=== PATIENT | male | born 1950 | race Two or more races ===

== ENCOUNTER 2022-07-05 12:26 | Inpatient (IN) | payer OTHER ==
[~2022-07-05] VITALS: Ht 172.7 cm; Wt 63.5 kg
--- NOTE | 2022-07-05 12:30 | NUR ---
PAtient AOx4 able to express his own concerns. PAtient was able to provide history and the situation that happened at the facility were he fell. Discussed plan of care, patient verbalized agreement. All safety precautions taken.
[2022-07-05] MEDS ORDERED: ONDANSETRON HCL/PF 4 MG/2 ML VIAL ONE (12:49)
[2022-07-05] MEDS ORDERED: MORPHINE SULFATE INJ 4 MG/ML DISP.SYRIN ONE (12:50)
--- NOTE | 2022-07-05 12:51 | NUR ---
MOVE SHEET SUBMITTED.
--- NOTE | 2022-07-05 12:59 | NUR ---
COVID SWAB COLLECTED AND SENT TO LAB
[2022-07-05] MEDS ORDERED: ONDANSETRON HCL/PF 4 MG/2 ML VIAL IVP ONE (13:00)
[2022-07-05] MEDS ORDERED: IV NS 0.9% 1,000 ML BAG IV ONE (13:00)
[2022-07-05] MEDS ORDERED: MORPHINE SULFATE INJ 2 MG/ML DISP.SYRIN IV ONE (13:00)
[2022-07-05 13:12] LABS: BASOPHILS % (AUTO) 0.2 % (0.0-2.0); EOSINOPHILS % (AUTO) 0.8 % (0.0-6.0); HEMATOCRIT 34 % (39-51); HEMOGLOBIN 11.2 g/dL (13.5-17.5); LYMPHOCYTES # (AUTO) 0.4 K/uL (0.8-4.8); LYMPHOCYTES % (AUTO) 1.7 % (20.0-44.0); MEAN CORPUSCULAR HGB CONC 33 g/dl (31.0-36.0); MEAN CORPUSCULAR VOLUME 87 fL (80-96); MONOCYTES # (AUTO) 1.6 K/uL (0.1-1.30); MONOCYTES % (AUTO) 6.6 % (2.0-12.0); NEUTROPHILS # (AUTO) 21.3 K/uL (1.8-8.9); NEUTROPHILS % (AUTO) 90.7 % (43.0-81.0); PLATELET COUNT (AUTO) 571 K/uL (150-450); RED BLOOD CELL COUNT(AUTO) 3.91 MIL/uL (4.5-6.0); WHITE BLOOD COUNT (AUTO) 23.5 K/uL (4.3-11.0)
[2022-07-05 13:27] LABS: ALBUMIN 1.8 g/dL (3.4-5.0); BILIRUBIN,DIRECT 4.1 mg/dL (0.0-0.2); BILIRUBIN,TOTAL 4.6 mg/dL (0.2-1.0); CALCIUM, SERUM 9.2 mg/dL (8.5-10.1); POTASSIUM 3.8 mmol/L (3.5-5.1); TOTAL PROTEIN, SERUM 7.8 g/dL (6.4-8.2)
[2022-07-05] MEDS ORDERED: IV NS 0.9% 250 ML IV ONE (13:57)
[2022-07-05] MEDS ORDERED: CT SWABBABLE VALVE TRANS SET 1 EA INFUS.SET MC ONE (13:57)
[2022-07-05] MEDS ORDERED: IOHEXOL-300 100 ML VIAL IV ONE (13:57)
--- NOTE | 2022-07-05 14:47 | NUR ---
RONAN SWARTZ [facility] [phone]
[2022-07-05] MEDS ORDERED: ACET-2605 PO (14:50)
[2022-07-05] MEDS ORDERED: HYDR-4209 PO (14:51)
[2022-07-05] MEDS ORDERED: AMLO-213 PO (14:51)
[2022-07-05] MEDS ORDERED: LISI10TA29 PO (14:51)
[2022-07-05] MEDS ORDERED: CHOL100043 PO (14:51)
[2022-07-05] MEDS ORDERED: GLYC1SUP4 RC (14:51)
[2022-07-05] MEDS ORDERED: MULT-24 PO (14:51)
[2022-07-05] MEDS ORDERED: POLY17PO4 PO (14:51)
[2022-07-05] MEDS ORDERED: ASCO-352 PO (14:51)
[2022-07-05] MEDS ORDERED: CEFEPIME 1 GM in IV D5W 50 ML IV ONE (15:30)
[2022-07-05] MEDS ORDERED: VANCOMYCIN 1 GM in IV D5W 250 ML IV ONE (15:30)
--- NOTE | 2022-07-05 15:34 | NUR ---
[facility] CALLED SOCIAL WORK JOB TITLES PAGED.
[2022-07-05] MEDS ORDERED: VANCOMYCIN 1 GM /D5W 250 ML PB IV ONE (15:40)
[2022-07-05 15:50] LABS: BILIRUBIN,URINE 2+ (NEGATIVE); COLOR,URINE YELLOW (YELLOW); LEUKOCYTE ESTERASE ,URINE NEGATIVE (NEGATIVE); NITRITE, URINE NEGATIVE (NEGATIVE); PH,URINE 7.5 (5.0-8.0); PROTEIN,URINE TRACE mg/dl (NEGATIVE); UGLUCOSE NEGATIVE (NEGATIVE)
[2022-07-05 16:25] LABS: BACTERIA,URINE None seen /HPF (None Seen); MUCUS,URINE Few /LPF (None Seen); RBC,URINE 0-2 /HPF (0-2); SQUAMOUS EPITHELIAL CELL,UR 0-2 /HPF (None Seen); WBC,URINE 0-2 /HPF (0-3)
--- NOTE | 2022-07-05 16:42 | NUR ---
GOT BED 105 ADMITTING INFORMED.
--- NOTE | 2022-07-05 16:50 | NUR ---
Called ZAKIYA, report given to Maria Guadalupe RN, patient cleared ro go to room #115
[2022-07-05] MEDS ORDERED: ONDANSETRON HCL/PF 4 MG/2 ML VIAL IVP PRN (17:00)
[2022-07-05] MEDS ORDERED: MAGNESIUM HYDROXIDE 30 ML UDC PO PRN ×2 (17:00)
[2022-07-05] MEDS ORDERED: ACETAMINOPHEN 325 MG TABLET PO PRN ×2 (17:00)
[2022-07-05] MEDS ORDERED: IV NS 0.9% 1,000 ML IV SCH (17:00)
[2022-07-05] MEDS ORDERED: MAG HYDROX/AL HYDROX/SIMETH 30 ML UDC PO PRN ×2 (17:00)
[2022-07-05] MEDS ORDERED: Z GUARD REMEDY 4 OZ OINT TP PRN ×2 (17:00)
--- NOTE | 2022-07-05 17:30 | NUR ---
OPERATOR SPECIALIST COMMUNICATIONS NOTE ADMIT 71 YEARS OLD TO ROOM 105 ALERT ORIENTEDX4 VERBALLY RESPONSIVE ON ROOM AIR AMBUALTORY ADMIT DIAGNOSIS IS SEPSIS,IV ACCESS IS ON LEFT AC AND RIHGT HAND INTACT PATENT,CONTINENT BOWEL/BLADDER SAFETY MEASURE IMPLEMENT BED IN LOW POSITION AND LOCKED,CALL LIGHT WITHIN REACH,CONTINUE TO MONITOR.
[2022-07-05] MEDS: IV NS 0.9% 1,000 ML IV SCH (17:44)
[2022-07-05 17:49] VITALS: BP 134/76
--- NOTE | 2022-07-05 18:49 | NUR ---
RN NOTE PATIENT REMAINS ALERT ORIENTED X4 VERBALLY RESPONSIVE ON ROOM AIR O2:98% ON IV HYDRATION NS 100CC/HR NO SOB NOT ACUTE DISTRESS NOTED,ENDORSE NEXT COMING SHIFT FOR CONTINUATION OF CARE.
--- NOTE | 2022-07-05 19:00 | NUR ---
RN OPENING NOTE RECEIVED PATIENT IN BED AWAKE. A/O X4. ABLE TO MAKE NEEDS KNOWN. IV ACCESS ON LEFT AC #18 NOTED TO BE PATENT AND INTACT INFUSING 0.9% NS @ 100CC/HR ORDERED. PATIENT ON TELE MONITOR READING OF SINUS RHYTHM 85BPM. PATIENT ON ROOM AIR TOLERATING WELL NO SIGNS OF SOB, UNLABORED BREATHING. SAFETY MEASURE IN PLACED: BED LOCKED AND IN LOWEST POSITION, HOB ELEVATED, SIDE RAILS UP X2, CALL LIGHT AND BEDSIDE TABLE WITHIN PATIENT REACH.
[2022-07-05 20:00] VITALS: BP 126/76
[2022-07-05] MEDS: MORPHINE SULFATE INJ 2 MG/ML DISP.SYRIN IV PRN (22:24)
--- NOTE | 2022-07-05 22:29 | NUR ---
RN NOTES PATIENT COMPLAINS OF GENERALIZE PAIN SCALE OF 9/10. PRN PAIN MEDICATION MORPHINE IS GIVEN ORDERED. WILL REASSESS.
[2022-07-06] VITALS: BP 126/76
[2022-07-06] MEDS: CEFEPIME 2 GM in IV D5W 100 ML IV SCH ×2 (03:17→15:10)
[2022-07-06] MEDS: IV NS 0.9% 1,000 ML IV SCH ×3 (03:18→23:38)
[2022-07-06] MEDS: VANCOMYCIN 1 GM in IV D5W 250ml IV SCH ×2 (03:55→15:50)
[2022-07-06 04:00] VITALS: BP 130/71
[2022-07-06] MEDS: MORPHINE SULFATE INJ 2 MG/ML DISP.SYRIN IV PRN (06:13)
[2022-07-06 06:32] LABS: BILIRUBIN,DIRECT 2.9 mg/dL (0.0-0.2); BILIRUBIN,TOTAL 3.3 mg/dL (0.2-1.0); CALCIUM, SERUM 8.3 mg/dL (8.5-10.1); CREATININE 0.8 mg/dL (0.6-1.3); MAGNESIUM 1.7 mg/dL (1.8-2.4); PHOSPHORUS 2.6 mg/dL (2.5-4.9); POTASSIUM 3.7 mmol/L (3.5-5.1)
[2022-07-06 06:37] LABS: BASOPHILS # (AUTO) 0.1 K/uL (0.0-0.2); BASOPHILS % (AUTO) 0.4 % (0.0-2.0); EOSINOPHILS % (AUTO) 4.1 % (0.0-6.0); HEMATOCRIT 28 % (39-51); HEMOGLOBIN 8.9 g/dL (13.5-17.5); LYMPHOCYTES # (AUTO) 0.8 K/uL (0.8-4.8); LYMPHOCYTES % (AUTO) 4.5 % (20.0-44.0); MEAN CORPUSCULAR HGB CONC 32 g/dl (31.0-36.0); MEAN CORPUSCULAR VOLUME 87 fL (80-96); MONOCYTES # (AUTO) 1.6 K/uL (0.1-1.30); MONOCYTES % (AUTO) 8.7 % (2.0-12.0); NEUTROPHILS # (AUTO) 15.4 K/uL (1.8-8.9); NEUTROPHILS % (AUTO) 82.3 % (43.0-81.0); PLATELET COUNT (AUTO) 478 K/uL (150-450); RED BLOOD CELL COUNT(AUTO) 3.19 MIL/uL (4.5-6.0); WHITE BLOOD COUNT (AUTO) 18.8 K/uL (4.3-11.0)
--- NOTE | 2022-07-06 06:44 | NUR ---
RN CLOSING NOTE PATIENT IN BED SLEEPING BREATHING EVENLY AND UNLABORED. A/O X4. ABLE TO MAKE NEEDS KNOWN. IV ACCESS ON LEFT AC #18 NOTED TO BE PATENT AND INTACT INFUSING 0.9% NS @ 100CC/HR ORDERED. PATIENT ON TELE MONITOR READING OF SINUS RHYTHM 76BPM. PATIENT ON ROOM AIR TOLERATING WELL NO SIGNS OF SOB, NO COMPLAINS OF PAIN AT THE MOMENT. NOT IN DISTRESS NOTED. ALL DUE MEDICATION IS GIVEN. MADE SURE PATIENT IS CLEAN AND COMFORTABLE. SAFETY MEASURE IN PLACED: BED LOCKED AND IN LOWEST POSITION, HOB ELEVATED, SIDE RAILS UP X2, CALL LIGHT AND BEDSIDE TABLE WITHIN PATIENT REACH. WILL ENDORSE TO NEXT SHIFT NURSE FOR CONTINUITY OF CARE.
[2022-07-06 06:49] LABS: ALBUMIN 1.3 g/dL (3.4-5.0)
--- NOTE | 2022-07-06 07:24 | NUR ---
RN OPENING NOTE PATIENT IN BED A/O X4. VERBALLY RESPONSIVE, IV ACCESS ON LEFT AC #18 PATENT, INTACT INFUSING 0.9% NS @ 100CC/HR ORDERED. IV ON RIGHT WRIST KRISTINA 18, PATIENT ON TELE MONITOR READING OF SINUS RHYTHM 82 BPM. PATIENT ON ROOM AIR TOLERATING WELL NO SIGNS OF SOB, NO COMPLAINS OF PAIN AT THE MOMENT. SAFETY MEASURE IN PLACED: BED LOCKED AND IN LOWEST POSITION, HOB ELEVATED, SIDE RAILS UP X2, CALL LIGHT AND BEDSIDE TABLE WITHIN PATIENT REACH. WILL CONTINUE TO MONITOR.
[2022-07-06 08:00] VITALS: BP 118/71
[2022-07-06] MEDS ORDERED: NEUTRA PHOS 1 POWD.PACKET PO ONE (10:00)
[2022-07-06] MEDS: Magnesium 1GM/D5W 100ML PREMIX 100 ML IV SCH ×2 (11:47→13:16)
[2022-07-06 12:00] VITALS: BP 131/59
--- NOTE | 2022-07-06 15:31 | NUR ---
RN NOTE RECEIVED CALL FROM PHARMACY FOR PATIENT, GRAM NEGATIVE RODS FOR BLOOD CULTURE. DR AL JOSEPH MADE AWARE.
[2022-07-06] MEDS: METRONIDAZOLE 500 MG TABLET PO SCH ×2 (15:50→21:20)
[2022-07-06 16:00] VITALS: BP 121/73
--- NOTE | 2022-07-06 19:18 | NUR ---
RN CLOSING NOTE PATIENT IN BED A/O X4. VERBALLY RESPONSIVE, IV ACCESS ON LEFT AC #18 PATENT, INTACT INFUSING 0.9% NS @ 100CC/HR ORDERED. IV ON RIGHT WRIST KRISTINA 18, PATIENT ON TELE MONITOR READING OF SINUS RHYTHM 75 BPM. ON CLEAR LIQUID DIET. PATIENT ON ROOM AIR TOLERATING WELL NO SIGNS OF SOB, NO COMPLAINS OF PAIN AT THE MOMENT. PATIENT WA REPOSITIONED EVERY 2 HOURS, SAFETY MEASURE IN PLACED: BED LOCKED AND IN LOWEST POSITION, HOB ELEVATED, SIDE RAILS UP X2, CALL LIGHT AND BEDSIDE TABLE WITHIN PATIENT REACH. REPORT GIVEN TO PODIATRIST NURSE FOR CONTINUING OF CARE
--- NOTE | 2022-07-06 19:51 | NUR ---
POTATO CHIP PROCESSING SUPERVISOR OPENING NOTES: RECEIVED PATIENT AWAKE IN BED, BED IN LOW POSITION, CALL LIGHTS WITHIN REACH, NO COMPLAIN OF PAIN AND DISCOMFORT AT THIS TIME, ON ROOM AIR SATURATING WELL, PATIENT IS A/O X4 SYRIAC SPEAKING, ABLE TO MAKE NEEDS KNOWN, REMIND TO USE THE CALL LIGHTS WHEN NEEDED ASSISTANCE,ON TELE MONITOR- SR-75, IV LINE AY LAC#18 WITH ONGOING NSS@100ML/HR INFUSING WELL, PATIENT KEPT CLEAN AND DRY ALL NEEDS MET WILL CONTINUE TO MONITOR.
[2022-07-06 20:00] VITALS: BP 125/80
[2022-07-07] VITALS: BP 142/70
[2022-07-07] MEDS: CEFEPIME 2 GM in IV D5W 100 ML IV SCH ×4 (02:33→21:03)
[2022-07-07] MEDS: VANCOMYCIN 1 GM in IV D5W 250ml IV SCH ×2 (03:26→15:58)
[2022-07-07 04:00] VITALS: BP 111/71
[2022-07-07] MEDS: METRONIDAZOLE 500 MG TABLET PO SCH ×3 (05:58→21:03)
[2022-07-07 06:14] LABS: CALCIUM, SERUM 8.4 mg/dL (8.5-10.1); CREATININE 0.8 mg/dL (0.6-1.3); PHOSPHORUS 2.8 mg/dL (2.5-4.9); POTASSIUM 3.6 mmol/L (3.5-5.1)
--- NOTE | 2022-07-07 06:36 | NUR ---
MANUFACTURING GROUP LEADER CLOSING NOTES: PATIENT SLEEP IN BED COMFORTABLY, BED IN LOW POSITION, CALL LIGHTS WITHIN REACH, NO COMPLAIN OF PAIN AND DISCOMFORT AT THIS TIME, ON ROOM AIR SATURATING WELL, PATIENT IS A/O X 3-4 AMBULATORY WITH ASSIST, ROMANSH SPEAKING ABLE TO MAKE NEED KNOWN, ON TELE MONITOR- SR-82, IV LINE AT LAC#18 WITH ONGOING 0.9NSS@100ML/HR INFUSING WELL, PATIENT KEPT CLEAN AND DRY ALL NEEDS MET ENDORSE TO INCOMING SHIFT.
--- NOTE | 2022-07-07 07:05 | NUR ---
ms rn received on be, awake alert,oriented x4,not in any form of distress, respirations even and unlabored,no sob noted, denies pain at this time, will monitor patient.
--- NOTE | 2022-07-07 07:30 | NUR ---
ms rn was seen by dr. yan, wants to have to call clinic for h and p of patient. called clinic, no one answering, left message and call back number.
[2022-07-07 07:52] LABS: BASOPHILS # (AUTO) 0.1 K/uL (0.0-0.2); BASOPHILS % (AUTO) 0.7 % (0.0-2.0); EOSINOPHILS % (AUTO) 3.9 % (0.0-6.0); HEMATOCRIT 29 % (39-51); HEMOGLOBIN 9.5 g/dL (13.5-17.5); LYMPHOCYTES # (AUTO) 0.9 K/uL (0.8-4.8); MEAN CORPUSCULAR HGB CONC 33 g/dl (31.0-36.0); MEAN CORPUSCULAR VOLUME 87 fL (80-96); MONOCYTES # (AUTO) 1.4 K/uL (0.1-1.30); MONOCYTES % (AUTO) 8.1 % (2.0-12.0); NEUTROPHILS # (AUTO) 14.2 K/uL (1.8-8.9); NEUTROPHILS % (AUTO) 82.3 % (43.0-81.0); PLATELET COUNT (AUTO) 475 K/uL (150-450); RED BLOOD CELL COUNT(AUTO) 3.29 MIL/uL (4.5-6.0); WHITE BLOOD COUNT (AUTO) 17.3 K/uL (4.3-11.0)
[2022-07-07 08:00] VITALS: BP 138/79
[2022-07-07] MEDS: IV NS 0.9% 1,000 ML IV SCH ×2 (08:57→19:00)
[2022-07-07 12:00] VITALS: BP 131/77
--- NOTE | 2022-07-07 12:00 | NUR ---
ms rn up w/ pt,walked w/ assist,tolerated well.
[2022-07-07] MEDS: MORPHINE SULFATE INJ 2 MG/ML DISP.SYRIN IV PRN ×2 (13:32→23:09)
--- NOTE | 2022-07-07 14:00 | NUR ---
ms rn was seen by surgeon robson Barrett,was told that no intervention at this time.
[2022-07-07 16:00] VITALS: BP 142/79
--- NOTE | 2022-07-07 18:49 | NUR ---
ms rn on bed, no distress noted, all needs attended.
--- NOTE | 2022-07-07 20:12 | NUR ---
MARKETER OPENING NOTES RECEIVED PATIENT IN BED AWAKE AND COHERENT, ON MODERATE HIGH BACK REST POSITION. ON ROOM AIR, NO SOB OR NOTED AT THIS TIME, BREATHING EVENLY, A/O X 4 IRANIAN SPEAKING AND ABLE TO VERBALIZED CONCERNS. WITH IV ACCESS AT LAC #18G AT 100ML/HR INFUSING WELL. CONTINENT WITH BRP WITH ASSISTANCE BUT USES URINAL. NO PAIN OR DISCOMFORT NOTED AT THIS TIME. KEPT BED ON LOWER LOCKED POSITION , KEPT SIDE RAILS UP X 2 ALL THE TIME. KEPT CALL LIGHT WITHIN AT REACH. WILL CONTINUE TO MONITOR FOR LUCY.
[2022-07-07 22:07] VITALS: BP 134/79
[2022-07-08] VITALS: BP 134/79
[2022-07-08] MEDS: VANCOMYCIN 1 GM in IV D5W 250ml IV SCH ×2 (02:25→14:13)
[2022-07-08 04:00] VITALS: BP 125/80
[2022-07-08] MEDS: CEFEPIME 2 GM in IV D5W 100 ML IV SCH ×3 (04:31→20:10)
[2022-07-08] MEDS: METRONIDAZOLE 500 MG TABLET PO SCH ×3 (04:31→20:12)
[2022-07-08] MEDS: IV NS 0.9% 1,000 ML IV SCH ×3 (05:13→22:20)
[2022-07-08 06:27] LABS: BASOPHILS # (AUTO) 0.1 K/uL (0.0-0.2); BASOPHILS % (AUTO) 0.7 % (0.0-2.0); EOSINOPHILS % (AUTO) 3.8 % (0.0-6.0); HEMATOCRIT 30 % (39-51); HEMOGLOBIN 9.9 g/dL (13.5-17.5); LYMPHOCYTES # (AUTO) 0.7 K/uL (0.8-4.8); LYMPHOCYTES % (AUTO) 4.4 % (20.0-44.0); MEAN CORPUSCULAR HGB CONC 33 g/dl (31.0-36.0); MEAN CORPUSCULAR VOLUME 87 fL (80-96); MONOCYTES # (AUTO) 1.2 K/uL (0.1-1.30); MONOCYTES % (AUTO) 7.7 % (2.0-12.0); NEUTROPHILS # (AUTO) 13.3 K/uL (1.8-8.9); NEUTROPHILS % (AUTO) 83.4 % (43.0-81.0); PLATELET COUNT (AUTO) 499 K/uL (150-450); RED BLOOD CELL COUNT(AUTO) 3.43 MIL/uL (4.5-6.0)
[2022-07-08 06:36] LABS: CALCIUM, SERUM 8.3 mg/dL (8.5-10.1); CREATININE 0.7 mg/dL (0.6-1.3); MAGNESIUM 1.8 mg/dL (1.8-2.4); PHOSPHORUS 2.5 mg/dL (2.5-4.9); POTASSIUM 3.2 mmol/L (3.5-5.1)
--- NOTE | 2022-07-08 06:47 | NUR ---
CURATOR OF PHOTOGRAPHY AND PRINTS CLOSING NOTES patient IS IN BED, ON MODERATE HIGH BACK REST POSITION A/O X 4 MACANESE SPEAKING. ON ROOM AIR SATURATING WELL NO SOB OR NOTED, BREATHING EVENLY. ATTACHED TO TELE MONITORING DEVICE. AMBULATORY WITH ASSISTANCE USES URINAL.WITH IV ACCESS AT LAC #18G WITH NS 1L AT 100ML/HR INFUSING WELL. ON CLEAR LIQUID DIET NO ASPIRATION NOTED, PM CARE RENDERED, ALL DUE MEDICATIONS GIVEN, KEPT BED ON LOWER LOCKED POSITION, KEPT SIDE RAILS UP X 2 ALL THE TIME, KEPT CALL LIGHT WITHIN AT REACH, SAFETY MEASURES MAINTAINED. WILL ENDORSED TO NEXT SHIFT FOR LUCY
--- NOTE | 2022-07-08 07:10 | NUR ---
CUTTER OPERATOR HELPER OPENING NOTES Received pt asleep in bed. Alert and oriented x4 Kinyarwanda speaking. No complaints of pain or discomfort at this time. Pt is currently on RA and tolerating it well. IV access on LAC 18G running IVF NS @ 100cc/hr as prescribed. HOB elevated to pts comfort. Siderails up at all times x3. Call light within reach. Will continue to monitor.
[2022-07-08 08:00] VITALS: BP 130/80
[2022-07-08] MEDS: POTASSIUM CL. PREMIX PERIPHER. 50 ML IV SCH ×4 (09:14→12:34)
[2022-07-08 12:00] VITALS: BP 134/80
[2022-07-08 16:00] VITALS: BP 127/79
--- NOTE | 2022-07-08 18:34 | NUR ---
REIMBURSEMENT SPEC CLOSING NOTES All due meds and tx given as ordered. Pt tolerated everything well. All needs attended to. Pt is still on RA and tolerating it well. IV access on right wrist 20G is patent and intact running NS @ 100cc/hr as ordered. Call light within reach. Will endorse to oncoming nurse.
[2022-07-08 20:00] VITALS: BP 139/87
[2022-07-08] MEDS: ONDANSETRON HCL/PF 4 MG/2 ML VIAL IVP PRN (21:58)
[2022-07-09] VITALS: BP 133/81
[2022-07-09] MEDS: VANCOMYCIN 1 GM in IV D5W 250ml IV SCH ×2 (03:14→14:39)
[2022-07-09 04:00] VITALS: BP 137/95
[2022-07-09] MEDS: METRONIDAZOLE 500 MG TABLET PO SCH ×3 (05:24→20:42)
[2022-07-09] MEDS: CEFEPIME 2 GM in IV D5W 100 ML IV SCH ×2 (05:24→12:15)
--- NOTE | 2022-07-09 06:51 | NUR ---
RN CLOSING NOTE A/OX4. ROOM AIR. SINUS RHYTHM ON THE MONITOR. IVF RUNNING. IV ABX GIVEN ORDERED. PRN ZOFRAN FOR ONE EPISODE OF EMESIS. PLAN TO TRANSFER TO HIGHER LEVEL OF CARE. CM TO F/U.
[2022-07-09 07:12] LABS: BASOPHILS # (AUTO) 0.1 K/uL (0.0-0.2); BASOPHILS % (AUTO) 0.7 % (0.0-2.0); EOSINOPHILS % (AUTO) 3.2 % (0.0-6.0); HEMATOCRIT 31 % (39-51); HEMOGLOBIN 10.3 g/dL (13.5-17.5); LYMPHOCYTES # (AUTO) 0.9 K/uL (0.8-4.8); LYMPHOCYTES % (AUTO) 5.8 % (20.0-44.0); MEAN CORPUSCULAR HGB CONC 33 g/dl (31.0-36.0); MEAN CORPUSCULAR VOLUME 87 fL (80-96); MONOCYTES # (AUTO) 1.2 K/uL (0.1-1.30); MONOCYTES % (AUTO) 7.7 % (2.0-12.0); NEUTROPHILS # (AUTO) 12.9 K/uL (1.8-8.9); NEUTROPHILS % (AUTO) 82.6 % (43.0-81.0); PLATELET COUNT (AUTO) 516 K/uL (150-450); RED BLOOD CELL COUNT(AUTO) 3.58 MIL/uL (4.5-6.0); WHITE BLOOD COUNT (AUTO) 15.7 K/uL (4.3-11.0)
[2022-07-09 07:28] LABS: BILIRUBIN,DIRECT 2.1 mg/dL (0.0-0.2); BILIRUBIN,TOTAL 2.3 mg/dL (0.2-1.0); CALCIUM, SERUM 8.5 mg/dL (8.5-10.1); CREATININE 0.6 mg/dL (0.6-1.3); POTASSIUM 3.1 mmol/L (3.5-5.1)
[2022-07-09 07:32] LABS: ALBUMIN 1.4 g/dL (3.4-5.0)
[2022-07-09 08:00] VITALS: BP 130/84
[2022-07-09] MEDS: IV NS 0.9% 1,000 ML IV PRN ×2 (09:17→22:30)
[2022-07-09] MEDS ORDERED: POTASSIUM CHLORIDE 20 MEQ POWDER PACKET PO ONE (10:00)
[2022-07-09 12:00] VITALS: BP 128/84
[2022-07-09 16:00] VITALS: BP 125/66
[2022-07-09] MEDS: MEROPENEM 1 G in IV NS 0.9% 100 ML IV SCH (17:23)
--- NOTE | 2022-07-09 18:27 | NUR ---
MANAGER NEW PRODUCT CLOSING NOTES All due meds and tx given as ordered. Pt tolerated everything well. All needs attended to. Pt is on RA and tolerating it well. IV access on RFA 22G is patent and intact running NS @ 100cc/hr as ordered. Call light within reach. Will endorse to oncoming nurse.
--- NOTE | 2022-07-09 19:31 | NUR ---
Patient in bed mosining c/o abdominal pain 10/10 and nauseas, at RA, no sob/acute respiratory distress, awaiting for transfer to higher level of care, will administer pain medication as ordered.
[2022-07-09] MEDS: MORPHINE SULFATE INJ 2 MG/ML DISP.SYRIN IV PRN (19:37)
[2022-07-09] MEDS: ONDANSETRON HCL/PF 4 MG/2 ML VIAL IVP PRN (19:37)
--- NOTE | 2022-07-09 19:37 | NUR ---
ZOFRAN AND MORPHINE IVP ADMINISTERED FOR PAIN AND NAUSEAS, WILL CONTINUE TO MONITOR CLOSELY.
[2022-07-09 20:00] VITALS: BP 156/89
[2022-07-10] VITALS: BP 136/80
[2022-07-10] MEDS: MEROPENEM 1 G in IV NS 0.9% 100 ML IV SCH ×3 (01:39→16:23)
[2022-07-10] MEDS: VANCOMYCIN 1 GM in IV D5W 250ml IV SCH ×2 (03:21→15:10)
[2022-07-10 04:00] VITALS: BP 109/69
[2022-07-10] MEDS: METRONIDAZOLE 500 MG TABLET PO SCH ×3 (05:24→21:00)
--- NOTE | 2022-07-10 06:30 | NUR ---
END OF SHIFT, Patient a/o x4 able to verbalize needs and concerns, at RA, no sob/acute distress noted during the night, medication for pain and nauseas administer, IV access on RFA 22G is patent and intact running NS @ 100cc/hr as ordered, NPO at this time for possible CT percutaneous drainage with catheter, per orders of dr Newell, patient aware, still awaiting for transfer to higher level of care, call light within reach, Will endorse to oncoming nurse.
[2022-07-10 06:42] LABS: BASOPHILS # (AUTO) 0.1 K/uL (0.0-0.2); BASOPHILS % (AUTO) 0.5 % (0.0-2.0); EOSINOPHILS % (AUTO) 1.4 % (0.0-6.0); HEMATOCRIT 32 % (39-51); HEMOGLOBIN 10.5 g/dL (13.5-17.5); LYMPHOCYTES % (AUTO) 5.5 % (20.0-44.0); MEAN CORPUSCULAR HGB CONC 33 g/dl (31.0-36.0); MEAN CORPUSCULAR VOLUME 87 fL (80-96); MONOCYTES # (AUTO) 1.2 K/uL (0.1-1.30); NEUTROPHILS % (AUTO) 85.6 % (43.0-81.0); PLATELET COUNT (AUTO) 502 K/uL (150-450); RED BLOOD CELL COUNT(AUTO) 3.68 MIL/uL (4.5-6.0); WHITE BLOOD COUNT (AUTO) 17.5 K/uL (4.3-11.0)
[2022-07-10 07:02] LABS: ALANINE AMINOTRANSFERASE 36 U/L (12-78); ALKALINE PHOSPHATASE 798 U/L (46-116); ASPARTATE AMINOTRANSFERASE 99 U/L (15-37); BILIRUBIN,DIRECT 3.1 mg/dL (0.0-0.2); BILIRUBIN,TOTAL 3.4 mg/dL (0.2-1.0); CALCIUM, SERUM 8.7 mg/dL (8.5-10.1); CARBON DIOXIDE 25 mmol/L (21-32); CHLORIDE 104 mmol/L (98-107); CREATININE 0.7 mg/dL (0.6-1.3); GLUCOSE 114 mg/dL (74-106); MAGNESIUM 1.8 mg/dL (1.8-2.4); PHOSPHORUS 2.5 mg/dL (2.5-4.9); POTASSIUM 3.5 mmol/L (3.5-5.1); SODIUM SERUM 135 mmol/L (136-145); UREA NITROGEN, BLOOD 5 mg/dL (7-18)
[2022-07-10 07:08] LABS: ALBUMIN 1.3 g/dL (3.4-5.0)
--- NOTE | 2022-07-10 07:10 | NUR ---
TRANSITIONAL CARE LIAISON OPENING NOTES Received pt asleep in bed. Alert and oriented x4 Danish speaking. No complaints of pain or discomfort at this time. Pt is currently on RA and tolerating it well. IV access on RFA 22G running IVF NS @ 100cc/hr as prescribed. HOB elevated to pts comfort. Siderails up at all times x3. Call light within reach. Will continue to monitor.
[2022-07-10 08:00] VITALS: BP 116/73
[2022-07-10] MEDS: ENSURE CLEAR 237 ML LIQUID (MIX BERRY) PO SCH ×3 (08:32→17:00)
--- NOTE | 2022-07-10 10:19 | NUR ---
GEAR LAPPER NOTES Lab called to relay critical lab value of albumin 1.3. Todd, EMPLOYEE RELATIONS MANAGER notified awaiting response.
[2022-07-10] MEDS: IV NS 0.9% 1,000 ML IV PRN (13:51)
[2022-07-10 16:00] VITALS: BP 139/78
--- NOTE | 2022-07-10 18:33 | NUR ---
CURB MACHINE OPERATOR CLOSING NOTES All due meds and tx given as ordered. Pt tolerated everything well. All needs attended to. Pt is on RA and tolerating it well. IV access on RFA 22G is patent and intact running NS @ 100cc/hr as ordered. Call light within reach. Will endorse to oncoming nurse.
[2022-07-10] MEDS: MORPHINE SULFATE INJ 2 MG/ML DISP.SYRIN IV PRN (22:17)
[2022-07-11] MEDS: MEROPENEM 1 G in IV NS 0.9% 100 ML IV SCH ×3 (01:22→18:45)
[2022-07-11] MEDS: IV NS 0.9% 1,000 ML IV PRN ×2 (02:23→13:57)
[2022-07-11] MEDS: VANCOMYCIN 1 GM in IV D5W 250ml IV SCH ×2 (03:20→17:19)
[2022-07-11 04:00] VITALS: BP 131/75
[2022-07-11] MEDS: METRONIDAZOLE 500 MG TABLET PO SCH (05:00)
[2022-07-11 06:22] LABS: BILIRUBIN,TOTAL 2.8 mg/dL (0.2-1.0); CALCIUM, SERUM 8.5 mg/dL (8.5-10.1); CREATININE 0.7 mg/dL (0.6-1.3); POTASSIUM 2.9 mmol/L (3.5-5.1); TOTAL PROTEIN, SERUM 5.5 g/dL (6.4-8.2)
[2022-07-11 06:25] LABS: ALBUMIN 1.3 g/dL (3.4-5.0)
--- NOTE | 2022-07-11 06:42 | NUR ---
END OF SHIFT, Patient a/o x4 able to verbalize needs and concerns, at RA, no sob/acute distress noted during the night, afebrile medication for pain administered once, IV access on RFA 22G patent and intact infusing NS @ 100cc/hr, NPO since midnight for CT percutaneous drainage with catheter, patient aware, still awaiting for bed to transfer to higher level of care, call light within reach, will endorse to oncoming nurse.
[2022-07-11] MEDS: POTASSIUM CL. PREMIX PERIPHER. 50 ML IV SCH ×6 (07:50→13:48)
[2022-07-11 08:00] VITALS: BP 122/73
[2022-07-11] MEDS: ENSURE CLEAR 237 ML LIQUID (MIX BERRY) PO SCH ×4 (08:21→21:08)
[2022-07-11] MEDS: Magnesium 1GM/D5W 100ML PREMIX 100 ML IV SCH ×2 (11:38→16:11)
[2022-07-11 16:00] VITALS: BP 125/81
--- NOTE | 2022-07-11 19:13 | NUR ---
RN CLOSING NOTE PATIENT AOX4 NEPALESE SPEAKING. BREATHING ON ROOM AIR. IV ACCESS ON LAC #20G IVF RUNNING AT 100MLS/HR. IV ABX GIVEN ORDERED. PLAN TO TRANSFER TO HIGHER LEVEL OF CARE. CM TO F/U.
--- NOTE | 2022-07-11 19:55 | NUR ---
MS RN OPENING NOTE PATIENT AWAKE IN BED, ALERT/ORIENTED X 3, VIETNAMESE SPEAKING, ABLE TO MAKE NEEDS KNOWN. PATIENT STABLE ON RA, NO S/S OF DISTRESS OR SOB NOTED, BREATHING EVEN AND UNLABORED. IV ACCESS ON LAC #20G INTACT AND INFUSING NS @ 100 ML/HR. PATIENT DENIES PAIN AT THIS TIME. SAFETY MEASURES IN PLACE: CALL LIGHT WITHIN REACH, SIDE RAILS UP X 3, BED LOCKED IN LOWEST POSITION, HOB ELEVATED, BED ALARM ON. WILL CONTINUE TO MONITOR PATIENT
[2022-07-11 20:00] VITALS: BP 136/82
[2022-07-12] MEDS: MEROPENEM 1 G in IV NS 0.9% 100 ML IV SCH ×3 (01:17→16:44)
[2022-07-12] MEDS: MORPHINE SULFATE INJ 2 MG/ML DISP.SYRIN IV PRN (01:25)
[2022-07-12] MEDS: IV NS 0.9% 1,000 ML IV PRN ×2 (01:26→14:02)
--- NOTE | 2022-07-12 01:34 | NUR ---
RN NOTE PATIENT MOANING, GUARDING AND C/O OF 8/10 ABDOMINAL PAIN. PRN MORPHINE 2 MG IV GIVEN ORDERED. WILL CONTINUE TO MONITOR PATIENT
[2022-07-12] MEDS: VANCOMYCIN 1 GM in IV D5W 250ml IV SCH (03:27)
[2022-07-12 04:15] VITALS: BP 141/83
[2022-07-12 07:07] LABS: CALCIUM, SERUM 8.3 mg/dL (8.5-10.1); CREATININE 0.6 mg/dL (0.6-1.3); POTASSIUM 3.1 mmol/L (3.5-5.1)
[2022-07-12 07:26] LABS: BASOPHILS # (AUTO) 0.1 K/uL (0.0-0.2); BASOPHILS % (AUTO) 0.7 % (0.0-2.0); EOSINOPHILS % (AUTO) 2.4 % (0.0-6.0); HEMATOCRIT 34 % (39-51); HEMOGLOBIN 10.9 g/dL (13.5-17.5); LYMPHOCYTES # (AUTO) 1.2 K/uL (0.8-4.8); LYMPHOCYTES % (AUTO) 7.2 % (20.0-44.0); MEAN CORPUSCULAR HGB CONC 33 g/dl (31.0-36.0); MEAN CORPUSCULAR VOLUME 87 fL (80-96); MONOCYTES # (AUTO) 1.2 K/uL (0.1-1.30); MONOCYTES % (AUTO) 7.5 % (2.0-12.0); NEUTROPHILS # (AUTO) 13.5 K/uL (1.8-8.9); NEUTROPHILS % (AUTO) 82.2 % (43.0-81.0); PLATELET COUNT (AUTO) 526 K/uL (150-450); RED BLOOD CELL COUNT(AUTO) 3.84 MIL/uL (4.5-6.0); WHITE BLOOD COUNT (AUTO) 16.4 K/uL (4.3-11.0)
--- NOTE | 2022-07-12 07:32 | NUR ---
MS RN CLOSING NOTE PATIENT SLEEPING IN BED, ALERT/ORIENTED X 3, FRENCH SPEAKING, ABLE TO MAKE NEEDS KNOWN. PATIENT STABLE ON RA, NO S/S OF DISTRESS OR SOB NOTED, BREATHING EVEN AND UNLABORED. IV ACCESS ON LAC #20G INTACT AND INFUSING NS @ 100 ML/HR. NO SIGNIFICANT CHANGES THIS SHIFT, PT SLEPT WELL THROUGH THE NIGHT, MEDICATIONS GIVEN ORDERED. PER PATIENT HE WOULD LIKE TO BE DISCHARGED TODAY BUT WANTS DISCHARGE PAPERS TO TAKE WITH HIM. SAFETY MEASURES IN PLACE: CALL LIGHT WITHIN REACH, SIDE RAILS UP X 3, BED LOCKED IN LOWEST POSITION, HOB ELEVATED, BED ALARM ON. ENDORSED TO DAYSHIFT RN FOR CONTINUITY OF CARE
[2022-07-12 08:00] VITALS: BP 132/76
[2022-07-12] MEDS: ENSURE CLEAR 237 ML LIQUID (MIX BERRY) PO SCH ×4 (09:51→21:36)
[2022-07-12] MEDS ORDERED: POTASSIUM CHLORIDE 20 MEQ POWDER PACKET PO SCH (11:00)
[2022-07-12] MEDS: POTASSIUM CL. PREMIX PERIPHER. 50 ML IV SCH ×4 (11:36→14:25)
[2022-07-12 16:00] VITALS: BP 149/82
--- NOTE | 2022-07-12 18:52 | NUR ---
MS RN CLOSING NOTE PATIENT IN BED, ALERT/ORIENTED X 3, MALAY SPEAKING, ABLE TO MAKE NEEDS KNOWN. PATIENT STABLE ON RA, NO S/S OF DISTRESS OR SOB NOTED, BREATHING EVEN AND UNLABORED. IV ACCESS ON LAC #20G INTACT AND INFUSING NS @ 100 ML/HR. SAFETY MEASURES IN PLACE. CALL LIGHT WITHIN REACH, SIDE RAILS UP X 3, BED LOCKED IN LOWEST POSITION, HOB ELEVATED, BED ALARM ON. ENDORSED TO DIE DESIGNER RN FOR CONTINUITY OF CARE
[2022-07-12 20:00] VITALS: BP 147/83
--- NOTE | 2022-07-12 20:12 | NUR ---
MS RN OPENING NOTE PATIENT IN BED, ALERT/ORIENTED X 3-4, HUNGARIAN SPEAKING, ABLE TO MAKE NEEDS KNOWN. PATIENT STABLE ON RA, NO S/S OF DISTRESS OR SOB NOTED, BREATHING EVEN AND UNLABORED. IV ACCESS ON LAC #20G INTACT AND INFUSING NS@100 ML/HR. SAFETY MEASURES IN PLACE. CALL LIGHT WITHIN REACH, SIDE RAILS UP X 3, BED LOCKED IN LOWEST POSITION, HOB ELEVATED, BED ALARM ON.
[2022-07-13] MEDS: MEROPENEM 1 G in IV NS 0.9% 100 ML IV SCH ×2 (00:31→08:01)
[2022-07-13 04:35] VITALS: BP 135/72
--- NOTE | 2022-07-13 06:37 | NUR ---
MS RN CLOSING NOTE PATIENT IN BED, ALERT/ORIENTED X 3-4, SINHALA SPEAKING, ABLE TO MAKE NEEDS KNOWN. PATIENT STABLE ON RA, NO S/S OF DISTRESS OR SOB NOTED, BREATHING EVEN AND UNLABORED. IV ACCESS ON LAC #20G INTACT AND INFUSING NS@100 ML/HR. SAFETY MEASURES IN PLACE. CALL LIGHT WITHIN REACH, SIDE RAILS UP X 3, BED LOCKED IN LOWEST POSITION, HOB ELEVATED, BED ALARM ON.
--- NOTE | 2022-07-13 07:10 | NUR ---
MS RN OPENING NOTE PATIENT AWAKE IN BED, ALERT/ORIENTED X 3, RUSSIAN SPEAKING, ABLE TO MAKE NEEDS KNOWN. ON CLEAR LIQUID DIET. PATIENT STABLE ON RA, NO S/S OF DISTRESS OR SOB NOTED, BREATHING EVEN AND UNLABORED. IV ACCESS ON LAC #20G INTACT AND INFUSING NS @ 100 ML/HR. PATIENT DENIES PAIN AT THIS TIME. SAFETY MEASURES IN PLACE: CALL LIGHT WITHIN REACH, SIDE RAILS UP X 3, BED LOCKED IN LOWEST POSITION, HOB ELEVATED, BED ALARM ON. WILL CONTINUE TO MONITOR PATIENT.
[2022-07-13] MEDS: MORPHINE SULFATE INJ 2 MG/ML DISP.SYRIN IV PRN (07:55)
--- NOTE | 2022-07-13 08:30 | NUR ---
MS RN NOTE: MILENA DNP AT BEDSIDE
[2022-07-13] MEDS: ENSURE CLEAR 237 ML LIQUID (MIX BERRY) PO SCH ×2 (09:02→12:05)
[2022-07-13 12:00] VITALS: BP 136/78
[2022-07-13] MEDS: IV NS 0.9% 1,000 ML IV PRN (13:20)
--- NOTE | 2022-07-13 14:15 | NUR ---
MS RN NOTE: PT ACCEPTED [facility] IN [place], GAVE REPORT TO DOUG [phone] GOING TO ROOM 1717.
--- NOTE | 2022-07-13 15:26 | NUR ---
MS RN NOTE: PT PICKED UP BY [facility] BY 2 EMT [place]. PT ALERT ORIENTED X3. ABLE TO DENY PAIN OR DISCOMFORT. TRANSFER TO [facility] IN [place]. IN STABLE CONDITION.PROVIDED BELONGINGS SHEET SIGNED. EXIT CARE FOLDER GIVEN
== END 2022-07-13 13:29 | DRG 48 ==
LOC: ER 12:35 → TELE1 16:52 → MEDSG1 07-10 10:15
PROVIDERS: ADMIT Internal Medicine; ATTEND Nurse Practitioner Acute Care
DX: G90.8 Other disorders of autonomic nervous system (principal); K75.0 Abscess of liver; E43 Unspecified severe protein-calorie malnutrition; E87.20 Acidosis, unspecified; C22.1 Intrahepatic bile duct carcinoma; R78.81 Bacteremia; E87.1 Hypo-osmolality and hyponatremia; D63.8 Anemia in other chronic diseases classified elsewhere; E88.09 Other disorders of plasma-protein metabolism, not elsewhere classified; E86.0 Dehydration; K52.9 Noninfective gastroenteritis and colitis, unspecified; K57.30 Diverticulosis of large intestine without perforation or abscess without bleeding; Z79.899 Other long term (current) drug therapy; Z85.05 Personal history of malignant neoplasm of liver; Z20.822 Contact with and (suspected) exposure to COVID-19; D75.839 Thrombocytosis, unspecified; E86.1 Hypovolemia; E87.6 Hypokalemia; I10 Essential (primary) hypertension; K82.8 Other specified diseases of gallbladder; N28.1 Cyst of kidney, acquired; N32.9 Bladder disorder, unspecified; N39.0 Urinary tract infection, site not specified; Z16.12 Extended spectrum beta lactamase (ESBL) resistance; Z87.19 Personal history of other diseases of the digestive system; N40.0 Benign prostatic hyperplasia without lower urinary tract symptoms; B96.89 Other specified bacterial agents as the cause of diseases classified elsewhere
CPT/HCPCS: 36415; 80048-TC; 80053-TC; 80076-TC; 80202-TC; 81001; 83605-TC; 83690-TC; 83735-TC; 84100-TC; 85025-TC; 87040-TC; 87081-TC; 97112-TC; 97116-TC; 97530-TC; A4223; C9803; G0378; J0692; J2185; J2270; J2405; J3370; J3475; J3480; J3490; J7030; J7050; J7060; Q9967